=== PATIENT | male | born 1980 | race Caucasian/White ===

== ENCOUNTER 2021-07-28 19:46 | Emergency (ER) | payer MEDICARE, OTHER, MEDICAID ==
[~2021-07-28] VITALS: Ht 180.3 cm; Wt 127.0 kg
[2021-07-28] MEDS ORDERED: JARDIANCE25 MG PO (19:55)
[2021-07-28] MEDS ORDERED: JANUMET 50-1,01 EACH PO (19:55)
[2021-07-28] MEDS ORDERED: OXYBUTYNIN 5 MG5 M2 PO (19:56)
[2021-07-28] MEDS ORDERED: OZEMPIC1 MG/0.71 SUBQ (19:56)
[2021-07-28] MEDS ORDERED: ACID CONTROLLER10 MG PO (19:56)
[2021-07-28] MEDS ORDERED: ZOLOFT50 M1 PO (19:56)
[2021-07-28] MEDS ORDERED: COZAAR 50 MG TA50 M1 PO (19:56)
[2021-07-28] MEDS ORDERED: LIPITOR10 MG PO (19:56)
[2021-07-28 20:41] LABS: INFLUENZA A ANTIGEN Negative (Negative); INFLUENZA B ANTIGEN Negative (Negative)
[2021-07-28] MEDS ORDERED: PREDNISONE50 MG PO (23:10)
[2021-07-28 23:22] VITALS: BP 122/68
== END 2021-07-28 23:22 | disposition home or self-care (01) ==
LOC: M.ERS 19:46
PROVIDERS: Emergency Medicine
DX: T78.49XA Other allergy, initial encounter (principal); Z20.822 Contact with and (suspected) exposure to COVID-19; L50.9 Urticaria, unspecified; R05.9 Cough, unspecified; E11.9 Type 2 diabetes mellitus without complications; I10 Essential (primary) hypertension; G43.909 Migraine, unspecified, not intractable, without status migrainosus; K21.9 Gastro-esophageal reflux disease without esophagitis; Z79.899 Other long term (current) drug therapy; Z88.6 Allergy status to analgesic agent; Z88.8 Allergy status to other drugs, medicaments and biological substances; Z88.1 Allergy status to other antibiotic agents; X58.XXXA Exposure to other specified factors, initial encounter